=== PATIENT | male | born 1990 | race Caucasian/White ===

== ENCOUNTER 2025-06-05 19:44 | Emergency (ER) | payer MEDICAID ==
[~2025-06-05] VITALS: Ht 165.1 cm; Wt 87.0 kg
[2025-06-05 19:53] VITALS: O2SAT 98
[2025-06-05 20:43] LABS: CLARITY URINE CLEAR (CLEAR); COLOR URINE YELLOW (YELLOW); GLUCOSE URINE NEGATIVE (NEGATIVE); KETONES URINE 2+ (NEGATIVE); LEUKOCYTE ESTERASE URINE NEGATIVE (NEGATIVE); NITRITE URINE NEGATIVE (NEGATIVE); OCCULT BLOOD URINE NEGATIVE (NEGATIVE); PH URINE 5.5 (4.5-8.0); PROTEIN URINE NEGATIVE (NEGATIVE); SPECIFIC GRAVITY URINE 1.008 (1.005-1.030); UROBILINOGEN URINE 0.2 E.U./dL (0.2-1.0)
[2025-06-05] MEDS ORDERED: LIDO-53 TP (21:04)
[2025-06-05] MEDS ORDERED: SENN25TA MT (21:04)
[2025-06-05 21:30] VITALS: BP 100/73; PULSE 65; RESP 16; TEMP 36.8; O2SAT 98
== END 2025-06-05 21:32 | disposition home or self-care (01) ==
LOC: ER 19:44
DX: K59.00 Constipation, unspecified (principal); F41.9 Anxiety disorder, unspecified; E11.9 Type 2 diabetes mellitus without complications
CPT/HCPCS: 74018; 81003; 99284